=== PATIENT | female | born 1990 | race Caucasian/White ===

== ENCOUNTER 2019-05-29 20:59 | Emergency (ER) | payer BC ==
[~2019-05-29] VITALS: Ht 165.1 cm; Wt 78.9 kg
[2019-05-29 21:04] VITALS: Ht 165.1 cm; Wt 78.9 kg
[2019-05-29 22:08] LABS: BASOPHIL % 0.2 % (0-2); PLATELET COUNT 247 x10^3mcL (130-400); RED CELL DISTRIBUTION WIDTH 12.5 % (11.5-14.5)
[2019-05-29 23:18] VITALS: BP 118/76
== END 2019-05-29 23:18 | disposition home or self-care (01) ==
LOC: ED 20:59
PROVIDERS: Emergency Medicine
DX: J02.0 Streptococcal pharyngitis (principal); E03.9 Hypothyroidism, unspecified; F32.9 Major depressive disorder, single episode, unspecified
CPT/HCPCS: 36415; 86308; J0561; J7512